=== PATIENT | female | born 1955 | race Caucasian/White ===

== ENCOUNTER 2021-11-07 21:27 | Inpatient (IN) | payer MEDICARE, OTHER ==
[~2021-11-07] VITALS: Ht 175.3 cm; Wt 59.4 kg
--- NOTE | 2021-11-08 12:58 | NUR ---
DR. VASQUEZ STATES START PT ON HEPARIN DRIP FOR 12 HRS WITHOUT BOLUS DOSE.
[2021-11-08] MEDS ORDERED: SPIRIVA RESPIMAT4 GM INH (14:12)
[2021-11-08] MEDS ORDERED: LOSARTAN POTASS25 MG PO (14:12)
[2021-11-08] MEDS ORDERED: FEXOFENADINE H180 MG PO (14:13)
[2021-11-08] MEDS ORDERED: ATENOLOL50 MG PO (14:14)
[2021-11-08] MEDS ORDERED: MELOXICAM7.5 MG PO (14:14)
[2021-11-08] MEDS ORDERED: IBUPROFEN800 MG PO (14:15)
[2021-11-08 16:21] LABS: HEMOGLOBIN 12.4 gm/dl (12.3-15.3); RED BLOOD COUNT 4.22 M/UL (4.00-5.10); WHITE BLOOD COUNT 7.8 K/UL (4.5-11.0)
[2021-11-08 16:51] LABS: BUN/CREATININE RATIO 19 (0-10)
[2021-11-09 05:05] LABS: HEMOGLOBIN 13.1 gm/dl (12.3-15.3); RED BLOOD COUNT 4.49 M/UL (4.00-5.10); WHITE BLOOD COUNT 6.9 K/UL (4.5-11.0)
[2021-11-09 05:30] LABS: BUN/CREATININE RATIO 16 (0-10)
[2021-11-09] MEDS ORDERED: NITROGLYCERIN0.4 MG SL (12:05)
[2021-11-09] MEDS ORDERED: BRILINTA 90 MG90 MG PO (12:05)
[2021-11-09] MEDS ORDERED: ATORVASTATIN CA80 MG PO (12:05)
[2021-11-09] MEDS ORDERED: LOPRESSOR 25 MG25 MG PO (12:05)
[2021-11-09] MEDS ORDERED: NICOTINE PATCH1 EAC2 TOP (12:05)
[2021-11-09] MEDS ORDERED: ASPIRIN EC81 MG PO (12:05)
== END 2021-11-09 12:52 | disposition home or self-care (01) | DRG 247 ==
LOC: CDU 22:06 → CCU 22:06
PROVIDERS: Physician Assistant; ADMIT Internal Medicine Cardiovascular Disease
PROC: B2111ZZ Fluoroscopy of Multiple Coronary Arteries using Low Osmolar Contrast (ICD-10-PCS; principal; 2021-11-07)
PROC: 027034Z Dilation of Coronary Artery, One Artery with Drug-eluting Intraluminal Device, Percutaneous Approach (ICD-10-PCS; 2021-11-07)
PROC: B24BZZZ Ultrasonography of Heart with Aorta (ICD-10-PCS; 2021-11-09)
DX: I21.09 ST elevation (STEMI) myocardial infarction involving other coronary artery of anterior wall (principal); I10 Essential (primary) hypertension; E78.5 Hyperlipidemia, unspecified; Z20.822 Contact with and (suspected) exposure to COVID-19; F17.210 Nicotine dependence, cigarettes, uncomplicated; Z79.82 Long term (current) use of aspirin; Z88.2 Allergy status to sulfonamides; Z95.5 Presence of coronary angioplasty implant and graft; Z82.0 Family history of epilepsy and other diseases of the nervous system
CPT/HCPCS: ECHO; 36415; 80053; 85025; 85027; 85347; 85730; 92920; 93005; 93306; 99152; 99153; C1725; C1769; C1887; C1894; J0461; J1644; J2250; J3010; J7040; Q9965; Q9967

== ENCOUNTER 2022-01-24 17:06 | Emergency (ER) | payer MEDICARE, OTHER ==
[~2022-01-24 17:06] MED LIST: ASPIRIN EC81 MG PO; ATENOLOL50 MG PO; ATORVASTATIN CA80 MG PO; BRILINTA 90 MG90 MG PO; FEXOFENADINE H180 MG PO; IBUPROFEN800 MG PO; LOPRESSOR 25 MG25 MG PO; LOSARTAN POTASS25 MG PO; MELOXICAM7.5 MG PO; NICOTINE PATCH1 EAC2 TOP; NITROGLYCERIN0.4 MG SL; SPIRIVA RESPIMAT4 GM INH
[2022-01-24 17:42] LABS: HEMOGLOBIN 15.4 gm/dl (12.3-15.3); RED BLOOD COUNT 5.05 M/UL (4.00-5.10); WHITE BLOOD COUNT 17.6 K/UL (4.5-11.0)
[2022-01-24 18:04] LABS: BUN/CREATININE RATIO 25 (0-10)
[2022-01-24 18:28] LABS: BORDETELLA PARAPERTUSSIS Not Detected (Not Detectd); BORDETELLA PERTUSSIS Not Detected (Not Detectd); CHLAMYDIA PNEUMONIAE Not Detected (Not Detectd); CORONAVIRUS HKU1 Not Detected (Not Detectd); CORONAVIRUS NL63 Not Detected (Not Detectd); CORONAVIRUS OC43 Not Detected (Not Detectd); CORONOAVIRUS 229E Not Detected (Not Detectd); HUMAN METAPNEUMOVIRUS Not Detected (Not Detectd); INFLUENZA A Not Detected (Not Detectd); INFLUENZA B Not Detected (Not Detectd); MYCOPLASMA PNEUMONIAE Not Detected (Not Detectd); PARAINFLUENZA VIRUS 1 Not Detected (Not Detectd); PARAINFLUENZA VIRUS 2 Not Detected (Not Detectd); PARAINFLUENZA VIRUS 3 Not Detected (Not Detectd); PARAINFLUENZA VIRUS 4 Not Detected (Not Detectd); RESPIRATORY SYNCYTIAL VIRUS Not Detected (Not Detectd)
[2022-01-24 19:27] LABS: HUMAN RHINOVIRUS/ENTEROVIRUS DETECTED (Not Detectd); SARS-CoV-2 NOT DETECTED (Not Detectd)
[2022-01-24] MEDS ORDERED: IPRAT-ALBUT 0.5-3 ML INH (21:15)
[2022-01-24] MEDS ORDERED: DELSYM30 MG/5 ML PO (21:15)
== END 2022-01-24 21:25 | disposition home or self-care (01) ==
LOC: ER1 17:06
PROVIDERS: Physician Assistant Medical
DX: B34.8 Other viral infections of unspecified site (principal); I25.10 Atherosclerotic heart disease of native coronary artery without angina pectoris; I25.2 Old myocardial infarction; I10 Essential (primary) hypertension; E78.5 Hyperlipidemia, unspecified; F17.210 Nicotine dependence, cigarettes, uncomplicated; Z88.2 Allergy status to sulfonamides
CPT/HCPCS: 71045; 80053; 82550; 82553; 84484; 85025; 87633; 93005; 96374; 99285; J2930